=== PATIENT | male | born 1940 | race African-American/Black ===

== ENCOUNTER 2018-12-04 09:35 | Emergency (ER) | payer MEDICARE ==
[~2018-12-04] VITALS: Ht 170.2 cm; Wt 88.0 kg
[2018-12-04] MEDS ORDERED: VALACYCLOVIR HCL 500MG TABLET PO STA (10:07)
[2018-12-04 10:35] VITALS: BP 122/89
== END 2018-12-04 10:37 | disposition home or self-care (01) ==
LOC: ER 09:35
DX: B02.9 Zoster without complications (principal); I10 Essential (primary) hypertension; E78.5 Hyperlipidemia, unspecified
CPT/HCPCS: 99283

== ENCOUNTER 2019-11-17 10:41 | Emergency (ER) | payer MEDICARE, OTHER ==
[~2019-11-17] VITALS: Ht 180.3 cm; Wt 90.0 kg
[2019-11-17] MEDS ORDERED: AMLO5TAB88 PO (11:41)
[2019-11-17 12:24] LABS: CHLORIDE 106 mEq/L (98-107)
[2019-11-17 14:17] VITALS: BP 135/88
== END 2019-11-17 14:24 | disposition home or self-care (01) ==
LOC: ER 10:41
DX: R07.89 Other chest pain (principal); I10 Essential (primary) hypertension; E78.00 Pure hypercholesterolemia, unspecified; Z79.899 Other long term (current) drug therapy
CPT/HCPCS: 36415; 71045; 80048; 84484; 93005; 99285